=== PATIENT | female | born 1985 | race Hispanic/Latino ===

== ENCOUNTER 2025-08-14 15:29 | Emergency (ER) | payer BC ==
[~2025-08-14] VITALS: Ht 152.4 cm; Wt 62.1 kg
--- NOTE | 2025-08-14 15:35 | ERN ---
ED Note History of Present Illness Stated Complaint: RIB PAIN Chief Complaint: Rib Pain Time Seen by MD: 15:32 Dictation: PATIENT IS A 40-YEAR-OLD FEMALE COMING IN TODAY WITH COMPLAINTS OF RIGHT INFEROLATERAL CHEST WALL PAIN TENDERNESS AFTER SHE SLIPPED AND FELL FROM A SAME LEVEL YESTERDAY. SHE STATES SHE HIT IT AGAINST A SINK. NO BLOOD THINNERS NO COUGH. STATES HER MOTRIN 800 PRIOR TO ARRIVAL. Allergies: Coded Allergies: No Known Drug Allergies (Unverified Allergy, Unknown, 08/14/25) Past Medical History RN Note Reviewed/Agreed w/PFSH: Yes Review of System Dictation CONSTITUTIONAL: NEGATIVE EXCEPT FOR HPI HEAD/FACE: NEGATIVE EXCEPT FOR HPI EENT: NEGATIVE EXCEPT FOR HPI RESPIRATORY: NEGATIVE EXCEPT FOR HPI RIGHT INFEROLATERAL RIB PAIN GASTROINTESTINAL/ABDOMINAL: NEGATIVE EXCEPT FOR HPI GENITOURINARY: NEGATIVE EXCEPT FOR HPI MUSCULOSKELETAL: NEGATIVE EXCEPT FOR HPI INTEGUMENTARY: NEGATIVE EXCEPT FOR HPI NEUROLOGICAL/PSYCH: NEGATIVE EXCEPT FOR HPI HEMATOLOGIC/LYMPHATIC: NEGATIVE EXCEPT FOR HPI ALL SYSTEMS NEGATIVE, EXCEPT NOTED ABOVE. 13 POINT REVIEW OF SYSTEMS ASSESSED AND ALL NEGATIVE EXCEPT FOR ABOVE. Initial Vital Sign VS Vital Signs Date Time Temp Pulse Resp B/P (MAP) Pulse Ox O2 Delivery O2 Flow Rate FiO2 08/14/25 15:32 97.9 70 18 121/68 100 Room Air 0 Physical Exam Dictation VITAL SIGNS REVIEWED GENERAL APPEARANCE: ALERT, ORIENTED X 3, MILD ACUTE DISTRESS, WELL DEVELOPED, NOURISHED. HEAD AND FACE: NON-TRAUMATIC. EYES: PERRL, PINK CONJUNCTIVAS, EYELID NO TRAUMA, ANTERIOR CHAMBER WITH ARCUS SENILIS. EARS: PINNAS INTACT AND NO SIGNS OF TRAUMA OR ERYTHEMA EAR CANALS CLEAR AND NO DISCHARGE TM NO ERYTHEMA NOSE: NO DISCHARGE, NO BLEEDING. OROPHARYNX: MOUTH NORMAL, TONGUE PINK, PHARYNX CLEAR,NO ERYTHEMA, TONSILS NO EXUDATES, NO ABSCESSES NOTED, MUCOUS MEMBRANE MOIST NECK: SUPPLE, NON-TENDER, NO THYROMEGALY, NO MASSES, NO JVD, NO BRUITS BREAST:DEFERRED CHEST: MILD RIGHT INFEROLATERAL CHEST WALL TENDERNESS. TENDERNESS, NO CREPITUS, NO PARADOXICAL MOVEMENT, NO RETRACTIONS LUNGS:CLEAR, WELL-VENTILATED, SYMMETRIC, NO RALES, NO WHEEZING, NO RHONCHI, NO STRIDOR, GOOD BREATH SOUNDS BILATERALLY BILATERAL BREATH SOUNDS CLEAR HEART: REGULAR RATE, REGULAR RHYTHM, NO MURMUR, NO GALLOPS VASCULAR: NO PERIPHERAL EDEMA, ABDOMEN: SOFT, POSITIVE BOWEL SOUNDS, NONDISTENDED, NO GUARDING, NONTENDER, NO REBOUND, NO MASSES NO HEPATOMEGALY, NO SPLENOMEGALY, NO TREJO'S SIGN, NO HERNIAS. RECTAL: DEFERRED GENITAL: DEFERRED NEUROLOGICAL: NORMAL SPEECH, MOTOR FUNCTION INTACT, SENSORY FUNCTION INTACT MUSCULOSKELETAL: NECK NONTENDER, FULL RANGE OF MOTION, BACK NONTENDER, FULL RANGE OF MOTION, EXTREMITIES: NONTENDER, FULL RANGE OF MOTION SKIN: COLOR PINK, DRY, NO TURGOR, NO RASH, NO LACERATIONS, NO ABRASIONS, NO CONTUSIONS. LYMPHATIC: DEFERRED Results (Laboratory/Radiology) Laboratory/Radiology RIB SERIES DEMONSTRATES SINGLE RIB FRACTURE LUNGS ARE WELL EXPANDED Labs Reviewed?: Yes ED Course ED Course Orders Procedure Category Date Status Time Ribs Uni Rt W Pa RAD 08/14/25 Taken Chest 3+ Vws 15:33 Vital Signs Date Time Temp Pulse Resp B/P (MAP) Pulse Ox O2 Delivery O2 Flow Rate FiO2 08/14/25 15:32 97.9 70 18 121/68 100 Room Air 0 Medical Decision Making [facility] 1630/MEDICAL DECISION-MAKING BASED ON PAIN MANAGEMENT AND RIB SERIES PATIENT HAS A SINGLE RIBS FRACTURE DISCHARGED HOME WITH PAIN MEDS AND TOLD TO SEE HER PRIMARY CARE DOCTOR FOR FOLLOW UP DEEP BREATHING X-RAY DX & DISP Disposition: Discharge Departure Impression: Primary Impression: Closed rib fracture Additional Impression: Contusion of right chest wall Condition: Stable Scripts Ibuprofen (Ibuprofen 800 mg Tab) 800 Mg Tab 800 MG PO Q8H PRN for fever or pain, #30 TAB 0 Refills Prov: RICHARDCHEPE [employer] 08/14/25 Additional Instructions: FOLLOW-UP WITH PRIMARY CARE PROVIDER IN 1 TO 2 DAYS. TAKE MEDICATIONS DIRECTED HERE IN THE EMERGENCY ROOM. OKAY TO CONTINUE HOME MEDICATIONS UNLESS OTHERWISE DISCUSSED DURING YOUR VISIT IN THE EMERGENCY ROOM TODAY. RETURN TO YOUR NEAREST EMERGENCY ROOM IF SYMPTOMS WORSEN OR IF THERE IS NO IMPROVEMENT. CALL 911 IF YOU NEED IMMEDIATE ASSISTANCE. TAKE TYLENOL OR MOTRIN [id number] NEEDED AND IF NO CONTRAINDICATIONS ARE PRESENT. INCREASE ORAL HYDRATION. A WOUND CULTURE OR URINE CULTURE WAS ORDERED HERE IN THE EMERGENCY ROOM DEPARTMENT PLEASE FOLLOW-UP WITH PRIMARY CARE PROVIDER AND ADVISE THEM TO GET REPEAT PORTS FROM OUR FACILITY. IF YOU HAD ANY HUNG WRAP/SPLINTS THAT WERE APPLIED HERE, PLEASE DO NOT REMOVE THEM UNTIL YOU SEE YOUR PRIMARY CARE OR SPECIALTY. TAKE IBUPROFEN NEEDED FOR PAIN WITH FOOD. PRIMARY CARE DOCTOR FOR FOLLOW UP. TAKE DEEP BREATH SEVERAL TIMES A DAY TO KEEP YOUR LUNGS EXPANDED. Time of Disposition: 16:30 I have reviewed the case, and I agree with, Diagnosis and Plan CHEPE RAMOSP Aug 14, 2025 15:35
[2025-08-14] MEDS ORDERED: IBUP-2077 PO (16:31)
--- NOTE | 2025-08-14 16:40 | HMCIMG ---
EXAM: CR right Rib, 3 View. CLINICAL HISTORY: RIGHT INFEROLATERAL RIB PAIN STATUS POST FALL YESTERDAY COMPARISON: None provided. FINDINGS: LUNGS: The visualized lungs appear essentially clear. PLEURAL SPACES: No pneumothorax evident. No pleural effusions. BONES: No visible acute rib fracture. IMPRESSION: No visible acute rib fracture. No pneumothorax. /Sweet
[2025-08-14 17:04] VITALS: BP 115/73; PULSE 70; RESP 18; TEMP 97.9; O2SAT 100
== END 2025-08-14 17:07 | disposition home or self-care (01) ==
LOC: EDH 15:29
DX: S22.31XA Fracture of one rib, right side, initial encounter for closed fracture (principal); W01.198A Fall on same level from slipping, tripping and stumbling with subsequent striking against other object, initial encounter; Y93.89 Activity, other specified; Y92.89 Other specified places as the place of occurrence of the external cause; Y99.8 Other external cause status
CPT/HCPCS: 71101; 99283